=== PATIENT | male | born 1955 | race Caucasian/White ===

== ENCOUNTER 2021-06-11 15:44 | Emergency (ER) | payer OTHER ==
[~2021-06-11] VITALS: Ht 177.8 cm; Wt 77.1 kg
--- NOTE | 2021-06-11 15:44 | NUR ---
PT TAKEN TO ER BED 10. MD, RT, RN, EMT AT PT BEDSIDE.
--- NOTE | 2021-06-11 15:44 | NUR ---
PT BROUGHT TO BED [address] [facility]
[2021-06-11 15:45] VITALS: BP 0/0
--- NOTE | 2021-06-11 15:45 | NUR ---
pt arrived by ambulance emt performing cpr. pt tranfered to er bed 10. ER MD intubated pt with 8.0 ett color change noted on ezcap ETT secured at 26 at the teeth. bagged pt without issues. cpr continued by ED staff. bagged with bvm throughout code. time of called by ER MD.
--- NOTE | 2021-06-11 15:46 | NUR ---
-BIBA IN FULL ARREST. PT HAD CALLED HIS FAMILY TELLING HIM HE HAD CHEST PAIN AND COLLAPSED WHILE ON THE PHONE. 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 PT FOUND IN ASYTOLE, X5 DEFIBRILATIONS [employer]AT BASKET MAKER HELPER FOR V. FIB. SEE CODE SHEET. PT ARRIVED WITH IO TO RIGHT LOWER LEG AND CPR IN PROGRESS. HX CARDIAC. -MC/FD [id number] 4 EPI, 100MG LIDOCAINE,BS141 [employer]AT BASKET MAKER HELPER. -SEE CODE SHEET FOR-RECORD OF AND CODE BLUE RECORD/RESUSCITATION DOCUMENTATION.
--- NOTE | 2021-06-11 15:53 | NUR ---
15:53-TIME OF , PRONOUNCED BY ER/MD DR OG RAMIREZ.
--- NOTE | 2021-06-11 16:03 | NUR ---
CALLED [employer] SPOKE TO [facility] #[phone]
--- NOTE | 2021-06-11 16:37 | NUR ---
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
--- NOTE | 2021-06-11 16:55 | NUR ---
Family at bedside.
--- NOTE | 2021-06-11 17:15 | NUR ---
FAMLY AT BEDSIDE.
--- NOTE | 2021-06-11 19:14 | NUR ---
REPORT GIVEN TO ER/CHARGE NORMAN.FAMILY WENT HOME.
--- NOTE | 2021-06-11 19:15 | NUR ---
FAXED [facility] TO [facility] [phone]
--- NOTE | 2021-06-11 19:18 | NUR ---
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
--- NOTE | 2021-06-11 19:18 | NUR ---
GAVE REPORT TO NICOLE DARBY. TRANSFER OF CARE AT THIS TIME.
--- NOTE | 2021-06-11 19:31 | NUR ---
[facility]SPORT AT BEDSIDE
--- NOTE | 2021-06-11 19:40 | NUR ---
GENERAL OPHTHALMOLOGIST DEPARTED HOSPITAL WITH PT.
== END 2021-06-11 15:53 ==
LOC: MED 15:44
DX: I46.9 Cardiac arrest, cause unspecified (principal)
CPT/HCPCS: 31500; 92950; 99285